=== PATIENT | female | born 1985 | race Caucasian/White ===

== ENCOUNTER 2019-07-19 10:40 | Emergency (ER) | payer OTHER ==
--- NOTE | 2019-07-19 11:36 | EDM.PDOC ---
ED HPI GENERAL MEDICAL PROBLEM - General Chief Complaint: Respiratory Problem Stated Complaint: SOB Time Seen by Provider: 07/19/19 11:08 Source of Information: Reports: Patient History Limitations: Reports: No Limitations - History of Present Illness INITIAL COMMENTS - FREE TEXT/NARRATIVE: The patient presents because of COVID 19 exposure. She was visiting her mother in [place] and returned home on 07/10/19. Her mom was visiting family in [place] a couple weeks ago. She went in on Thursday because she is having a cough and she found out this morning she was positive for COVID 19. The patient presents with some shortness of breath, cough, stiff neck and diarrhea. She does not have a fever here or at home. She has a history of asthma as a child. Onset: Gradual Duration: Day(s): Severity: Mild Improves with: Reports: None Worsens with: Reports: None Associated Symptoms: Reports: Cough, Shortness of Breath. Denies: Chest Pain, Fever/Chills, Headaches, Nausea/Vomiting Neck Pain Score (Numeric/FACES): 5 - Related Data Allergies Allergy/AdvReac Type Severity Reaction Status Date / Time clindamycin Allergy Rash Verified 07/19/19 11:02 Home Meds: Home Meds Norethindrone AC-Eth Estradiol [Microgestin 21 1-20 Tablet] 1 tab PO DAILY 07/18 [History] ED ROS GENERAL - Review of Systems Review Of Systems: See Below Constitutional: Reports: No Symptoms HEENT: Reports: No Symptoms Respiratory: Reports: Shortness of Breath, Cough Cardiovascular: Reports: No Symptoms Endocrine: Reports: No Symptoms GI/Abdominal: Reports: No Symptoms : Reports: No Symptoms Musculoskeletal: Reports: No Symptoms ED EXAM, GENERAL - Physical Exam Exam: See Below Exam Limited By: No Limitations General Appearance: Alert, No Apparent Distress Ears: Normal External Exam Nose: Normal Inspection Head: Atraumatic, Normocephalic Neck: Normal Inspection Respiratory/Chest: No Respiratory Distress, Lungs Clear, Normal Breath Sounds Cardiovascular: Regular Rate, Rhythm, No Edema, No Murmur GI/Abdominal: Soft, Non-Tender, No Organomegaly, No Mass Back Exam: Normal Inspection Extremities: Normal Inspection Course - Vital Signs Last Recorded V/S: Last Vital Signs Temp 98.2 F 07/19/19 10:56 Pulse 88 07/19/19 10:56 Resp 18 07/19/19 10:56 BP 146/96 H 07/19/19 10:56 Pulse Ox 99 07/19/19 10:56 - Re-Assessments/Exams Free Text/Narrative Re-Assessment/Exam: 07/19/19 11:44 I have ordered the COVID 19 test. I will call her with results. Departure - Departure Time of Disposition: 11:45 Disposition: Home, Self-Care 01 Condition: Good Clinical Impression: Viral URI - Discharge Information *PRESCRIPTION DRUG MONITORING PROGRAM REVIEWED*: Not Applicable *COPY OF PRESCRIPTION DRUG MONITORING REPORT IN PATIENT LISETH: Not Applicable Forms: ED Department Discharge Additional Instructions: We will call you with the results as soon as we have them. Please return if you are worse. Call the COVID 19 hotline for the state at . Sepsis Event Note - Evaluation Sepsis Screening Result: No Definite Risk - Focused Exam Vital Signs: Vital Signs Temp Pulse Resp BP Pulse Ox 07/19/19 10:56 98.2 F 88 18 146/96 H 99 Date Exam was Performed: 07/19/19 Time Exam was Performed: 11:37
== END 2019-07-19 12:35 | disposition home or self-care (01) ==
LOC: JD.ED 10:40
DX: J06.9 Acute upper respiratory infection, unspecified (principal); Z88.1 Allergy status to other antibiotic agents; Z20.828 Contact with and (suspected) exposure to other viral communicable diseases
CPT/HCPCS: 99282; 99284; U0001; U0002

== ENCOUNTER 2019-10-07 18:24 | Emergency (ER) | payer OTHER ==
--- NOTE | 2019-10-07 19:35 | EDM.PDOC ---
<Kevyn Martinez Niurka - Last Filed: 10/07/19 22:19> ED HPI GENERAL MEDICAL PROBLEM - General Chief Complaint: Respiratory Problem Stated Complaint: SOB COUGH PHLEGM Time Seen by Provider: 10/07/19 19:02 Source of Information: Reports: Patient History Limitations: Reports: No Limitations - Related Data Allergies Allergy/AdvReac Type Severity Reaction Status Date / Time clindamycin Allergy Rash Verified 07/19/19 11:02 Home Meds: Home Meds norethindrone ac-eth estradioL [Microgestin 21 1-20 Tablet] 1 tab PO DAILY 07/18 [History] Past Medical History Cardiovascular History: Reports: Heart Murmur Other Cardiovascular History: undetectable now Respiratory History: Reports: Other (See Below) Other Respiratory History: 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, 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 inhaler for 10-15years 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: 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: - Past Surgical History HEENT Surgical History: Reports: Tonsillectomy Social & Family History - Tobacco Use Smoking Status *Q: Never Smoker - Caffeine Use Caffeine Use: Reports: Coffee, Soda ED EXAM, GENERAL - Physical Exam Exam: See Below Exam Limited By: No Limitations General Appearance: Alert, WD/WN, No Apparent Distress Eye Exam: Bilateral Eye: EOMI, Normal Inspection Ears: Normal External Exam, Normal Canal, Hearing Grossly Normal, Normal TMs Nose: Normal Inspection, Normal Mucosa, No Blood Throat/Mouth: Normal Inspection, Normal Lips, Normal Teeth, Normal Gums, Normal Oropharynx, Normal Voice, No Airway Compromise Head: Atraumatic, Normocephalic Neck: Normal Inspection, Supple, Non-Tender, Full Range of Motion. No: Lymphadenopathy (L), Lymphadenopathy (R) Respiratory/Chest: No Respiratory Distress, Lungs Clear, Normal Breath Sounds, No Accessory Muscle Use. No: Decreased Breath Sounds, Crackles, Rhonchi, Wheezing, Stridor, Prolonged Expiration Cardiovascular: Normal Peripheral Pulses, Regular Rate, Rhythm, No Edema, No Gallop, No JVD, No Murmur, No Rub Peripheral Pulses: 3+: Radial (L), Radial (R) GI/Abdominal: Normal Bowel Sounds, Soft, Non-Tender, No Organomegaly, No Distention, No Abnormal Bruit, No Mass (Female) Exam: Deferred Rectal (Female) Exam: Deferred Back Exam: Normal Inspection, Full Range of Motion, NT Extremities: Normal Inspection, Normal Range of Motion, No Pedal Edema, Normal Capillary Refill Neurological: Alert, Oriented, Normal Cognition, No Motor/Sensory Deficits Psychiatric: Normal Affect Skin Exam: Warm, Dry, Intact, Normal Color, No Rash EKG INTERPRETATION EKG Date: 10/07/19 Time: 20:01 Rhythm: NSR Rate (Beats/Min): 81 [place]: Normal P-Wave: Present QRS: Other (Late transition) ST-T: Normal QT: Normal Comparison: NA - No Prior EKG Course - Vital Signs Last Recorded V/S: Last Vital Signs Temp 97.7 F 10/07/19 18:32 Pulse 92 10/07/19 18:32 Resp 20 10/07/19 18:32 BP 153/106 H 10/07/19 18:32 Pulse Ox 100 10/07/19 18:32 - Orders/Labs/Meds Orders: Active Orders 24 hr Category Date Time Status EKG Documentation Completion [RC] STAT Care 10/07/19 19:22 Active Chest 2V [CR] Stat Exams 10/07/19 19:22 Taken Labs: Laboratory Tests 10/07/19 10/07/19 10/07/19 Range/Units 19:54 19:54 19:54 WBC 7.11 (3.98-10.04) K/mm3 RBC 4.54 (3.98-5.22) M/mm3 Hgb 13.3 (11.2-15.7) gm/dl Hct 39.4 (34.1-44.9) % MCV 86.8 (79.4-94.8) fl MCH 29.3 (25.6-32.2) pg MCHC 33.8 (32.2-35.5) g/dl RDW Std Deviation 38.3 (36.4-46.3) fL Plt Count 260 (182-369) K/mm3 MPV 11.5 (9.4-12.3) fl Neutrophils % (Manual) 47 (40-60) % Band Neutrophils % 2 (0-10) % Lymphocytes % (Manual) 48 H (20-40) % Atypical Lymphs % 0 % Monocytes % (Manual) 2 (2-10) % Eosinophils % (Manual) 0 L (0.7-5.8) % Basophils % (Manual) 1 (0.1-1.2) Platelet Estimate Adequate RBC Morph Comment Normal D-Dimer, Quantitative 0.30 (0.19-0.50) mg/L Sodium 140 (136-145) mEq/L Potassium 3.8 (3.5-5.1) mEq/L Chloride 105 (98-107) mEq/L Carbon Dioxide 23 (21-32) mEq/L Anion Gap 15.8 H (5-15) BUN 14 (7-18) mg/dL Creatinine 0.7 (0.55-1.02) mg/dL Est Cr Clr Drug Dosing 108.01 mL/min Estimated GFR (MDRD) > 60 (>60) mL/min BUN/Creatinine Ratio 20.0 H (14-18) Glucose 91 (74-106) mg/dL Calcium 9.5 (8.5-10.1) mg/dL Total Bilirubin 0.4 (0.2-1.0) mg/dL AST 13 L (15-37) U/L ALT 18 (14-59) U/L Alkaline Phosphatase 51 (46-116) U/L Total Protein 7.8 (6.4-8.2) g/dl Albumin 3.8 (3.4-5.0) g/dl Globulin 4.0 gm/dL Albumin/Globulin Ratio 1.0 (1-2) - Re-Assessments/Exams Free Text/Narrative Re-Assessment/Exam: 10/07/19 19:31 I evaluated the patient along with Lori, and I have reviewed her documentation. I agree with her documentation. As above, the patient has been experiencing about 4 months of periodic dyspnea associated with a sensation of a phlegmy nasopharyngeal drainage, along with perioral tingling, throat tightness and difficulty swallowing, palpitations, and the sensation of walking on rubber legs. She acknowledges that when these events occur, she feels anxious. Her physical exam today is completely benign. Her oxygen saturation is 100% on room air, suggesting that her symptoms may be related to hyperventilation syndrome. For today's purposes, I have ordered a work-up that includes blood work, including a D-dimer, a chest x-ray, and an ECG. 10/07/19 20:12 Two-view chest radiograph appears to be grossly normal. The cardiac silhouette is within normal limits. No pulmonary vascular congestion. No pleural effusions. No focal infiltrate. No pneumothorax. Formal read per the Radiologist pending. 10/07/19 21:02 The patient's CBC is unremarkable. Her CMP is remarkable for a anion gap slightly elevated at 15.8, but with a bicarbonate normal at 23. The remainder of her CMP is unremarkable. Her D-dimer is within normal limits at 0.30. 10/07/19 21:15 Test results discussed with the patient and her boyfriend (now present). The patient's oxygen saturation was 100% on room air, suggesting hyperventilation, and her symptoms of perioral tingling, throat tightness, palpitations, and the sensation of walking on rubber legs are all consistent with hyperventilation syndrome. I explained that we ordered a work-up to rule out known medical causes of hyperventilation, including a PE, dysrhythmias, severe anemia, etc., and that all of those were negative. Her symptoms, therefore, are most likely due to anxiety, however, we recommended that she undergo an EGD to make sure that she does not have an upper airway abnormality, such as a Zenker's diverticulum. If that is negative, then we are advising that she seek treatment for anxiety. Her blood pressure has been elevated, however, we are recommending that she receive treatment for anxiety before she is started on an antihypertensive. Lastly, we find no evidence of an infection, and are therefore recommending that she discontinue the amoxicillin. Departure - Departure Time of Disposition: 21:17 Disposition: Home, Self-Care 01 Condition: Good Clinical Impression: Hyperventilation - Discharge Information *PRESCRIPTION DRUG MONITORING PROGRAM REVIEWED*: Not Applicable *COPY OF PRESCRIPTION DRUG MONITORING REPORT IN PATIENT LISETH: Not Applicable Instructions: Hyperventilation, Pursed Lip Breathing Referrals: Cecy Domínguez NP [Nurse Practitioner] - Forms: ED Department Discharge Additional Instructions: You were seen in the emergency room for 3 to 4 months of intermittent shortness of breath, along with the intermittent sensation of a dry mouth and a phlegmy drainage in the back of your throat, causing a choking sensation. Work-up in the ER included blood work, a chest x-ray, and an ECG. Your entire work-up was unremarkable. You are not anemic. There is no suggestion of an infection. You do not have pneumonia or collapsed lung. You do not have a blood clot in your lungs. No electrolyte abnormalities were found. Based on your history, physical exam, and ER tests, the cause of your symptoms is most likely due to anxiety, however, we are recommending that you undergo an EGD (scope of your upper gastrointestinal tract and stomach). We recommend that you STOP the amoxicillin. Please throw the remaining tablets into the trash - do not to flush them down the toilet. Please follow-up with Cecy Domínguez NP, or one of the other providers in the clinic, at the next available appointment. You can establish that provider as a PCP, and they can make arrangements for you to undergo an EGD. If your EGD is unremarkable, we recommend that you discuss with your PCP treatment options for anxiety. As discussed, you can monitor your blood pressure, but we are recommending that you not be started on an antihypertensive medicine until/unless you are treated for anxiety. If any other problems, please do not hesitate to return to the ER. Sepsis Event Note - Evaluation Sepsis Screening Result: No Definite Risk - Focused Exam Vital Signs: Vital Signs Temp Pulse Resp BP Pulse Ox 10/07/19 18:32 97.7 F 92 20 153/106 H 100 Date Exam was Performed: 10/07/19 Time Exam was Performed: 22:19 <Lori Martinez - Last Filed: 10/07/19 22:25> ED HPI GENERAL MEDICAL PROBLEM - History of Present Illness INITIAL COMMENTS - FREE TEXT/NARRATIVE: Ms. Roger is a 34 year-old woman with no significant medical history, who presents with complaints of post-nasal drainage which causes choking, and shortness of breath. She first notice the symptoms in June, when she was seen in a [place], [place] ED. She was given steroids IV and sent home with a 2 day course. She felt as the steroids really helped. She returned to her PCP 1 week later for the same symptoms. She was diagnosed with seasonal allergies. She took Benadryl and Zyrtec without relief. After 3 weeks she returned a third time and had a thyroid workup which was normal. She then was given a 14 day course of Amoxicillin. She is on day 12. She reports that she will get a post- nasal drip, she will have a feeling of phlegm, which she is unable to clear. At times she will choke and have difficulty breathing. Then her mouth will become dry and her throat feels tight and at times she has mild chest palpitations. At times she notices some perioral tingling which is accompanied by the sensation of walking on rubbery legs. The episodes last about one hour and then resolve spontaneously. The cycle will repeat several times per day. She reports that she has had trouble with anxiety in the past and feels as if she might be having anxiety during her symptoms. She denies, nausea, vomiting, chest pain, diarrhea, constipation, cough, sore throat, WONG, abdominal pain and no urinary symptoms. Today in the ED the patient is hemodynamically stable and afebrile. She has recently moved to this area and has not established a PCP. 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 Course - Orders/Labs/Meds Labs: Laboratory Tests 10/07/19 10/07/19 10/07/19 Range/Units 19:54 19:54 19:54 WBC 7.11 (3.98-10.04) K/mm3 RBC 4.54 (3.98-5.22) M/mm3 Hgb 13.3 (11.2-15.7) gm/dl Hct 39.4 (34.1-44.9) % MCV 86.8 (79.4-94.8) fl MCH 29.3 (25.6-32.2) pg MCHC 33.8 (32.2-35.5) g/dl RDW Std Deviation 38.3 (36.4-46.3) fL Plt Count 260 (182-369) K/mm3 MPV 11.5 (9.4-12.3) fl Neutrophils % (Manual) 47 (40-60) % Band Neutrophils % 2 (0-10) % Lymphocytes % (Manual) 48 H (20-40) % Atypical Lymphs % 0 % Monocytes % (Manual) 2 (2-10) % Eosinophils % (Manual) 0 L (0.7-5.8) % Basophils % (Manual) 1 (0.1-1.2) Platelet Estimate Adequate RBC Morph Comment Normal D-Dimer, Quantitative 0.30 (0.19-0.50) mg/L Sodium 140 (136-145) mEq/L Potassium 3.8 (3.5-5.1) mEq/L Chloride 105 (98-107) mEq/L Carbon Dioxide 23 (21-32) mEq/L Anion Gap 15.8 H (5-15) BUN 14 (7-18) mg/dL Creatinine 0.7 (0.55-1.02) mg/dL Est Cr Clr Drug Dosing 108.01 mL/min Estimated GFR (MDRD) > 60 (>60) mL/min BUN/Creatinine Ratio 20.0 H (14-18) Glucose 91 (74-106) mg/dL Calcium 9.5 (8.5-10.1) mg/dL Total Bilirubin 0.4 (0.2-1.0) mg/dL AST 13 L (15-37) U/L ALT 18 (14-59) U/L Alkaline Phosphatase 51 (46-116) U/L Total Protein 7.8 (6.4-8.2) g/dl Albumin 3.8 (3.4-5.0) g/dl Globulin 4.0 gm/dL Albumin/Globulin Ratio 1.0 (1-2) Sepsis Event Note - Focused Exam Date Exam was Performed: 10/07/19 Time Exam was Performed: 22:21
--- NOTE | 2019-10-08 10:19 | CR ---
Chest: 2 views of the chest were obtained. Comparison: No prior chest imaging is available. Cardiac silhouette and mediastinum are normal. Lungs are clear. Bony structures are unremarkable. Impression: 1. Nothing acute is seen on 2 view chest x-ray. Diagnostic code #1 This report was dictated in MDT
== END 2019-10-07 21:42 | disposition home or self-care (01) ==
LOC: JD.ED 18:24
DX: R06.4 Hyperventilation (principal); Z88.1 Allergy status to other antibiotic agents
CPT/HCPCS: 36415; 71046; 71046-26; 80053; 85007; 85027; 85379; 93005; 93010; 99282; 99285-25

== ENCOUNTER 2023-05-19 17:15 | Inpatient (IN) | payer MEDICAID ==
[~2023-05-19 17:15] MED LIST: Bupivacaine 0.25% 10 ML SDV ONE; Lidocaine 1% 10 ML MDV ONE; Sodium Bicarbonate 8.4% 50 MEQ/50 ML SDV ONE
[2023-05-19 18:32] LABS: BASOPHILS PERCENT AUTO 0.3 % (0.0-1.0); EOSINOPHILS ABSOLUTE AUTO 0.1 K/mm3 (0.0-0.4); HEMATOCRIT 35.5 % (37.0-47.0); HEMOGLOBIN 12.3 gm/dl (12.0-16.0); IMMATURE GRAN ABSOLUTE AUTO 0.05 K/mm3 (0.00-0.05); IMMATURE GRAN PERCENT AUTO 0.6 % (0.0-0.4); LYMPHOCYTES ABSOLUTE AUTO 2.8 K/mm3 (1.0-4.8); LYMPHOCYTES PERCENT AUTO 31.8 % (24.0-44.0); MEAN CORPUSCULAR HGB CONC 34.6 g/dl (32.0-36.0); MEAN CORPUSCULAR VOLUME 86.6 fl (83.0-99.0); MEAN PLATELET VOLUME 11.2 fl (9.4-12.3); MONOCYTES ABSOLUTE AUTO 0.6 K/mm3 (0.0-0.8); MONOCYTES PERCENT AUTO 6.5 % (0.0-8.0); NEUTROPHILS ABSOLUTE AUTO 5.2 K/mm3 (1.8-7.7); NEUTROPHILS PERCENT AUTO 59.8 % (41.0-71.0); PLATELET COUNT,PLT 175 K/mm3 (150-400); WHITE BLOOD CELL COUNT,WBC 8.67 K/mm3 (3.9-11.3)
[2023-05-19] MEDS ORDERED: Ondansetron 4 MG/2 ML SDV IVPUSH PRN (18:43)
[2023-05-19] MEDS ORDERED: Acetaminophen 325 MG Tab PO PRN (18:43)
[2023-05-19] MEDS ORDERED: Nalbuphine HCl 10 MG/ 1ML Amp IVPUSH PRN (18:43)
[2023-05-19] MEDS ORDERED: Lidocaine 1% 50 ML MDV INJECT PRN (18:43)
[2023-05-19] MEDS ORDERED: Sodium Chloride 0.9% 10 ML Syringe FLUSH PRN (18:43)
[2023-05-19] MEDS ORDERED: Oxytocin/Lactated Ringers 30 UNIT/500 ML BAG IV SCH ×2 (18:45)
[2023-05-19 18:47] LABS: CREATININE,URINE RAND 49.6 mg/dL (30.0-125.0); PROTEIN CREATININE RATIO,URINE 137.1 mg/g (0-149); PROTEIN,URINE RANDOM 6.8 mg/dL (0.0-11.8)
[2023-05-19 18:54] LABS: CREATININE 0.5 mg/dL (0.55-1.02); EST CRCL DRUG DOSING (CG) 145.61 mL/min
[2023-05-19] MEDS: Lactated Ringers 1,000 ML IV SCH (19:01)
[2023-05-19] MEDS ORDERED: diphenhydrAMINE 50 MG/ML SDV IVPUSH PRN (20:34)
[2023-05-19] MEDS ORDERED: fentaNYL 100 MCG/2 ML SDV EPIDUR PRN (20:34)
[2023-05-19] MEDS ORDERED: Sodium Chloride 0.9% 10 ML Syringe FLUSH SCH (21:00)
[2023-05-19] MEDS: Bupivacaine/fentaNYL/NS 100 ML Bag EPIDUR PRN (23:55)
[2023-05-20] MEDS: ePHEDrine 50 MG/ML SDV IVPUSH PRN ×4 (01:33→02:07)
[2023-05-20] MEDS: Lactated Ringers 1,000 ML IV SCH ×3 (02:35→09:49)
[2023-05-20] MEDS: Bupivacaine/fentaNYL/NS 100 ML Bag EPIDUR PRN ×2 (08:30→15:13)
[2023-05-20] MEDS ORDERED: Tranexamic Acid 1,000 MG/10 ML Vial ONE (17:09)
[2023-05-20] MEDS ORDERED: dexmedeTOMIDine HCl 200 MCG/2 ML SDV ONE (18:20)
[2023-05-20] MEDS ORDERED: Lidocaine 2% 5 ML SDV ONE (18:20)
[2023-05-20] MEDS ORDERED: fentaNYL 100 MCG/2 ML SDV ONE ×2 (18:20→21:16)
[2023-05-20] MEDS ORDERED: Metoclopramide 10 MG/2 ML SDV IVPUSH ONE (18:36)
[2023-05-20] MEDS ORDERED: Citric Acid/Sodium Citrate Solution 30 ML Cup PO ONE (18:36)
[2023-05-20] MEDS ORDERED: ceFAZolin 2 GM in Sodium Chloride 0.9% 50 ML IV ONE (18:36)
[2023-05-20] MEDS ORDERED: Azithromycin 500 MG in Sodium Chloride 0.9% 250 ML IV ONE (18:36)
[2023-05-20] MEDS ORDERED: GENTAMICIN IV ONE (19:08)
[2023-05-20] MEDS ORDERED: SODIUM CHLORIDE 0.9% IV ONE (19:08)
[2023-05-20] MEDS ORDERED: Ampicillin 2 GM in Sodium Chloride 0.9% 100 ML IV SCH (19:15)
[2023-05-20] MEDS: metroNIDAZOLE/Normal Saline 500 MG in Premix Bag 1 BAG IV SCH (19:21)
[2023-05-20] MEDS ORDERED: Morphine PF 10 MG/10 ML SDV ONE (19:26)
[2023-05-20] MEDS ORDERED: ceFAZolin 2 GM Vial ONE ×3 (19:54→20:57)
[2023-05-20] MEDS ORDERED: Phenylephrine 1% 10 MG/ML SDV ONE ×2 (20:22→23:01)
[2023-05-20] MEDS ORDERED: Lactated Ringers 1,000 ML ONE ×2 (21:03→22:01)
[2023-05-20] MEDS ORDERED: Sodium Chloride 0.9% 1,000 ML ONE (21:03)
[2023-05-20] MEDS ORDERED: Etomidate 2 MG/ML 20 ML SDV IVPUSH ONE (21:12)
[2023-05-20] MEDS ORDERED: Lactated Ringers 1,000 ML IV ONE ×2 (21:15→21:45)
[2023-05-20 21:17] LABS: BASOPHILS PERCENT AUTO 0.2 % (0.0-1.0); EOSINOPHILS PERCENT AUTO 0.2 % (0.0-6.0); HEMATOCRIT 29.2 % (37.0-47.0); HEMOGLOBIN 9.9 gm/dl (12.0-16.0); IMMATURE GRAN ABSOLUTE AUTO 0.08 K/mm3 (0.00-0.05); IMMATURE GRAN PERCENT AUTO 0.5 % (0.0-0.4); LYMPHOCYTES ABSOLUTE AUTO 3.1 K/mm3 (1.0-4.8); LYMPHOCYTES PERCENT AUTO 18.2 % (24.0-44.0); MEAN CORPUSCULAR HGB CONC 33.9 g/dl (32.0-36.0); MEAN CORPUSCULAR VOLUME 88.5 fl (83.0-99.0); MEAN PLATELET VOLUME 11.6 fl (9.4-12.3); MONOCYTES ABSOLUTE AUTO 0.7 K/mm3 (0.0-0.8); MONOCYTES PERCENT AUTO 4.3 % (0.0-8.0); NEUTROPHILS ABSOLUTE AUTO 12.9 K/mm3 (1.8-7.7); NEUTROPHILS PERCENT AUTO 76.6 % (41.0-71.0); PLATELET COUNT,PLT 162 K/mm3 (150-400); WHITE BLOOD CELL COUNT,WBC 16.89 K/mm3 (3.9-11.3)
[2023-05-20] MEDS ORDERED: Midazolam 1 MG/ML 2 ML SDV ONE ×2 (21:17→21:34)
[2023-05-20] MEDS ORDERED: Rocuronium 50 MG/5 ML Vial ONE (21:19)
[2023-05-20 21:26] LABS: INR 0.96; PROTHROMBIN TIME 10.3 SECONDS (9.7-12.0)
[2023-05-20 21:27] LABS: PTT,PARTIAL THROMBOPLSTIN TIME 26.3 SECONDS (21.7-31.4)
[2023-05-20 21:30] LABS: A/G RATIO 0.6 (1-2); ALBUMIN 1.9 g/dl (3.4-5.0); ANION GAP 14.8 (5-15); BILIRUBIN TOTAL 0.5 mg/dL (0.2-1.0); BUN/CREATININE RATIO 11.4 (14-18); CREATININE 0.7 mg/dL (0.55-1.02); EST CRCL DRUG DOSING (CG) 104.01 mL/min; POTASSIUM,K 3.8 mEq/L (3.5-5.1); PROTEIN TOTAL,TP 5.2 g/dl (6.4-8.2)
[2023-05-20] MEDS ORDERED: Bupivacaine 0.5% 10 ML SDV ONE ×2 (21:30→22:17)
[2023-05-20] MEDS ORDERED: Ketamine 200 MG/20 ML MDV ONE (21:35)
[2023-05-20] MEDS ORDERED: Ondansetron 4 MG/2 ML SDV ONE (21:43)
[2023-05-20] MEDS ORDERED: Succinylcholine 200 MG/10 ML MDV ONE (21:45)
[2023-05-20] MEDS ORDERED: Metoclopramide 10 MG/2 ML SDV ONE (22:06)
[2023-05-20] MEDS ORDERED: HYDROmorphone 0.5 MG/0.5 ML Syringe ONE (22:20)
[2023-05-20] MEDS ORDERED: Dextrose 5%-Lactated Ringers 1,000 ML IV SCH (22:48)
[2023-05-20] MEDS ORDERED: Morphine 2 MG/ML SYRINGE IVPUSH PRN (22:48)
[2023-05-20] MEDS ORDERED: Ondansetron 4 MG/2 ML SDV IV PRN (22:48)
[2023-05-20] MEDS ORDERED: diphenhydrAMINE 50 MG/ML SDV IVPUSH PRN (22:48)
[2023-05-20] MEDS ORDERED: Phenylephrine 10 MG in Sodium Chloride 0.9% 99 ML IV SCH (23:00)
[2023-05-20] MEDS ORDERED: Methylergonovine 0.2 MG/1 ML Amp ONE (23:00)
[2023-05-20] MEDS ORDERED: Carboprost Tromethamine 250 MCG/1 mL Vial ONE (23:00)
[2023-05-20] MEDS ORDERED: Misoprostol 200 MCG Tab ONE (23:00)
[2023-05-20] MEDS ORDERED: Sodium Chloride 0.9% 250 ML ONE (23:19)
[2023-05-21] MEDS: Acetaminophen/oxyCODONE 325-5 MG Tab PO PRN ×2 (01:03→20:55)
[2023-05-21] MEDS: Ampicillin 2 GM in Sodium Chloride 0.9% 100 ML IV SCH ×4 (01:58→20:10)
[2023-05-21] MEDS: metroNIDAZOLE/Normal Saline 500 MG in Premix Bag 1 BAG IV SCH ×2 (03:59→14:34)
[2023-05-21] MEDS: Ketorolac 30 MG/ML SDV IVPUSH SCH ×3 (04:00→15:54)
[2023-05-21 05:00] LABS: A/G RATIO 0.6 (1-2); ALBUMIN 1.7 g/dl (3.4-5.0); ANION GAP 14.8 (5-15); BILIRUBIN TOTAL 0.9 mg/dL (0.2-1.0); BUN/CREATININE RATIO 16.7 (14-18); CALCIUM 7.4 mg/dL (8.5-10.1); CREATININE 0.6 mg/dL (0.55-1.02); EST CRCL DRUG DOSING (CG) 121.35 mL/min; POTASSIUM,K 3.8 mEq/L (3.5-5.1); PROTEIN TOTAL,TP 4.6 g/dl (6.4-8.2)
[2023-05-21 05:23] LABS: HEMATOCRIT 32.2 % (37.0-47.0); HEMOGLOBIN 11.1 gm/dl (12.0-16.0); MEAN CORPUSCULAR HEMOGLOBIN 29.4 pg (28.0-32.0); MEAN CORPUSCULAR HGB CONC 34.5 g/dl (32.0-36.0); MEAN CORPUSCULAR VOLUME 85.2 fl (83.0-99.0); MEAN PLATELET VOLUME 11.6 fl (9.4-12.3); PLATELET COUNT,PLT 150 K/mm3 (150-400); RED BLOOD CELL COUNT 3.78 M/mm3 (4.10-5.30); WHITE BLOOD CELL COUNT,WBC 25.97 K/mm3 (3.9-11.3)
[2023-05-21 05:59] LABS: BAND PERCENT MAN 0 % (0-10); BASOPHILS PERCENT MAN 0 (0.1-1.2); EOSINOPHILS PERCENT MAN 0 % (0.7-5.8); LYMPHOCYTES % ATYPICAL MANUAL 0 %; LYMPHOCYTES PERCENT MAN 10 % (20-40); MONOCYTES PERCENT MAN 6 % (2-10)
[2023-05-21 06:01] LABS: PLATELET COUNT ESTIMATE ADEQUATE
[2023-05-21] MEDS ORDERED: Magnesium Sulfate/Water 2 GM in Premix Bag 1 BAG IV ONE (06:07)
[2023-05-21] MEDS ORDERED: Sertraline 50 MG Tab PO SCH (09:00)
[2023-05-21] MEDS ORDERED: Sodium Chloride 0.9% 250 ML ONE (20:07)
[2023-05-22] MEDS ORDERED: Simethicone 80 MG Tab.Chew PO PRN ×2 (00:37→06:21)
[2023-05-22] MEDS: Acetaminophen/oxyCODONE 325-5 MG Tab PO PRN ×6 (00:52→20:47)
[2023-05-22 05:30] LABS: HEMATOCRIT 24.6 % (37.0-47.0); HEMOGLOBIN 8.4 gm/dl (12.0-16.0); MEAN CORPUSCULAR HEMOGLOBIN 29.8 pg (28.0-32.0); MEAN CORPUSCULAR HGB CONC 34.1 g/dl (32.0-36.0); MEAN CORPUSCULAR VOLUME 87.2 fl (83.0-99.0); MEAN PLATELET VOLUME 11.3 fl (9.4-12.3); PLATELET COUNT,PLT 109 K/mm3 (150-400); RED BLOOD CELL COUNT 2.82 M/mm3 (4.10-5.30); WHITE BLOOD CELL COUNT,WBC 5.74 K/mm3 (3.9-11.3)
[2023-05-22 05:40] LABS: A/G RATIO 0.6 (1-2); ALBUMIN 1.8 g/dl (3.4-5.0); BILIRUBIN TOTAL 0.4 mg/dL (0.2-1.0); CALCIUM 7.8 mg/dL (8.5-10.1); CREATININE 0.5 mg/dL (0.55-1.02); EST CRCL DRUG DOSING (CG) 145.61 mL/min; MAGNESIUM 1.7 mg/dL (1.8-2.4)
[2023-05-22] MEDS: Ibuprofen 600 MG Tab PO PRN ×3 (08:02→22:28)
[2023-05-22] MEDS: Docusate Sodium 100 MG Cap PO PRN ×2 (08:02→20:48)
[2023-05-23] MEDS: Acetaminophen/oxyCODONE 325-5 MG Tab PO PRN ×4 (03:20→21:16)
[2023-05-23] MEDS: Ibuprofen 600 MG Tab PO PRN ×3 (05:36→20:25)
[2023-05-23 06:21] LABS: HEMATOCRIT 23.1 % (37.0-47.0); HEMOGLOBIN 7.6 gm/dl (12.0-16.0); MEAN CORPUSCULAR HEMOGLOBIN 29.3 pg (28.0-32.0); MEAN CORPUSCULAR HGB CONC 32.9 g/dl (32.0-36.0); MEAN CORPUSCULAR VOLUME 89.2 fl (83.0-99.0); MEAN PLATELET VOLUME 11.5 fl (9.4-12.3); PLATELET COUNT,PLT 126 K/mm3 (150-400); RED BLOOD CELL COUNT 2.59 M/mm3 (4.10-5.30); WHITE BLOOD CELL COUNT,WBC 4.69 K/mm3 (3.9-11.3)
[2023-05-23 06:43] LABS: A/G RATIO 0.6 (1-2); ALBUMIN 1.9 g/dl (3.4-5.0); ANION GAP 12.6 (5-15); BILIRUBIN TOTAL 0.3 mg/dL (0.2-1.0); CALCIUM 7.8 mg/dL (8.5-10.1); CREATININE 0.5 mg/dL (0.55-1.02); EST CRCL DRUG DOSING (CG) 145.61 mL/min; MAGNESIUM 1.8 mg/dL (1.8-2.4); POTASSIUM,K 3.6 mEq/L (3.5-5.1)
[2023-05-23] MEDS: Docusate Sodium 100 MG Cap PO PRN ×2 (08:20→20:25)
[2023-05-23] MEDS: Sertraline 50 MG Tab PO SCH (17:23)
[2023-05-24] MEDS ORDERED: NIFEdipine 10 MG Cap PO ONE (01:08)
[2023-05-24 04:00] LABS: HEMATOCRIT 29.5 % (37.0-47.0); MEAN CORPUSCULAR HEMOGLOBIN 29.5 pg (28.0-32.0); MEAN CORPUSCULAR HGB CONC 33.9 g/dl (32.0-36.0); MEAN PLATELET VOLUME 10.4 fl (9.4-12.3); PLATELET COUNT,PLT 187 K/mm3 (150-400); RED BLOOD CELL COUNT 3.39 M/mm3 (4.10-5.30); WHITE BLOOD CELL COUNT,WBC 7.26 K/mm3 (3.9-11.3)
[2023-05-24] MEDS ORDERED: Sodium Chloride 0.9% 1,000 ML IV SCH (04:00)
[2023-05-24 04:22] LABS: A/G RATIO 0.6 (1-2); ALBUMIN 2.6 g/dl (3.4-5.0); ANION GAP 16.9 (5-15); BILIRUBIN TOTAL 0.4 mg/dL (0.2-1.0); BUN/CREATININE RATIO 22.5 (14-18); CALCIUM 8.5 mg/dL (8.5-10.1); CREATININE 0.4 mg/dL (0.55-1.02); EST CRCL DRUG DOSING (CG) 182.02 mL/min; POTASSIUM,K 3.9 mEq/L (3.5-5.1); PROTEIN TOTAL,TP 6.9 g/dl (6.4-8.2)
[2023-05-24] MEDS: Acetaminophen/oxyCODONE 325-5 MG Tab PO PRN ×2 (06:21→10:28)
[2023-05-24] MEDS: Sertraline 50 MG Tab PO SCH (09:10)
[2023-05-24] MEDS ORDERED: NIFEdipine 30 MG Tab.ER PO SCH (10:15)
== END 2023-05-24 11:52 | disposition home or self-care (01) | DRG 783 ==
LOC: JD.OBCHECK 17:15 → JD.OB 17:17 → JD.OBCHECK 18:42 → JD.OB 18:43 → OBSVTOIN 20:06 → JD.OB 05-20 20:06 → JD.ICU 05-20 22:50 → JD.OB 05-21 09:00
PROVIDERS: ADMIT Obstetrics & Gynecology; ATTEND Obstetrics & Gynecology
PROC: 30233N1 Transfusion of Nonautologous Red Blood Cells into Peripheral Vein, Percutaneous Approach (ICD-10-PCS; 2023-05-20)
PROC: 10D00Z1 Extraction of Products of Conception, Low, Open Approach (ICD-10-PCS; 2023-05-20)
PROC: 0UT70ZZ Resection of Bilateral Fallopian Tubes, Open Approach (ICD-10-PCS; 2023-05-20)
PROC: 0UT90ZL Resection of Uterus, Supracervical, Open Approach (ICD-10-PCS; 2023-05-20)
PROC: 3E033XZ Introduction of Vasopressor into Peripheral Vein, Percutaneous Approach (ICD-10-PCS; 2023-05-20)
PROC: 10H07YZ Insertion of Other Device into Products of Conception, Via Natural or Artificial Opening (ICD-10-PCS; 2023-05-20)
PROC: 3E033VJ Introduction of Other Hormone into Peripheral Vein, Percutaneous Approach (ICD-10-PCS; 2023-05-20)
PROC: 10907ZC Drainage of Amniotic Fluid, Therapeutic from Products of Conception, Via Natural or Artificial Opening (ICD-10-PCS; 2023-05-20)
PROC: 30233K1 Transfusion of Nonautologous Frozen Plasma into Peripheral Vein, Percutaneous Approach (ICD-10-PCS; principal; 2023-05-21)
DX: O13.4 Gestational [pregnancy-induced] hypertension without significant proteinuria, complicating childbirth (principal); O41.1230 Chorioamnionitis, third trimester, not applicable or unspecified; D62 Acute posthemorrhagic anemia; O99.344 Other mental disorders complicating childbirth; F32.A Depression, unspecified; O26.893 Other specified pregnancy related conditions, third trimester; Z67.31 Type AB blood, Rh negative; F41.9 Anxiety disorder, unspecified; O72.1 Other immediate postpartum hemorrhage; O14.14 Severe pre-eclampsia complicating childbirth; O62.1 Secondary uterine inertia; O99.285 Endocrine, nutritional and metabolic diseases complicating the puerperium; O75.1 Shock during or following labor and delivery; O90.89 Other complications of the puerperium, not elsewhere classified; O99.03 Anemia complicating the puerperium; O76 Abnormality in fetal heart rate and rhythm complicating labor and delivery; I95.9 Hypotension, unspecified; E83.42 Hypomagnesemia; R09.02 Hypoxemia; Z37.0 Single live birth; Z3A.36 36 weeks gestation of pregnancy; Z88.1 Allergy status to other antibiotic agents
CPT/HCPCS: 36415; 36430; 51702; 59025; 80053; 82565; 82570; 83615; 83735; 84156; 84450; 84460; 84520; 84550; 85007; 85018; 85025; 85027; 85610; 85730; 86592; 86850; 86870; 86900; 86901; 86922; 87040; 93005; 94762; A9270-GY; J0290; J0330; J0665; J0690; J1170; J1580; J1836; J1885; J2210; J2250; J2270; J2274; J2371; J2405; J2765; J3010; J3475; J3490; J7030; J7050; J7120; J7999; P9016; P9017

== ENCOUNTER 2023-05-24 13:54 | Emergency (ER) | payer MEDICAID ==
[2023-05-24] MEDS ORDERED: hydrOXYzine HCl 25 MG Tab PO ONE ×2 (14:35→15:42)
== END 2023-05-24 16:09 | disposition home or self-care (01) ==
LOC: JD.ED 13:54
DX: F41.9 Anxiety disorder, unspecified (principal); I10 Essential (primary) hypertension; Z88.1 Allergy status to other antibiotic agents
CPT/HCPCS: 93005; 99284; A9270; 93010

== ENCOUNTER 2023-05-30 22:49 | Emergency (ER) | payer MEDICAID ==
[2023-05-30] MEDS ORDERED: Hydrochlorothiazide 25 MG Tab PO ONE (23:37)
[2023-05-30] MEDS ORDERED: hydrOXYzine HCl 50 MG Tab PO SCH (23:45)
== END 2023-05-31 00:05 | disposition home or self-care (01) ==
LOC: JD.ED 22:49
DX: I10 Essential (primary) hypertension (principal); F41.9 Anxiety disorder, unspecified; J45.909 Unspecified asthma, uncomplicated; Z79.899 Other long term (current) drug therapy; Z88.8 Allergy status to other drugs, medicaments and biological substances
CPT/HCPCS: 99283; A9270

== ENCOUNTER 2023-11-23 22:48 | Emergency (ER) | payer MEDICAID ==
[2023-11-23 23:29] LABS: BASOPHILS PERCENT AUTO 0.5 % (0.0-1.0); EOSINOPHILS ABSOLUTE AUTO 0.1 K/mm3 (0.0-0.4); HEMATOCRIT 40.1 % (37.0-47.0); HEMOGLOBIN 13.4 gm/dl (12.0-16.0); IMMATURE GRAN ABSOLUTE AUTO 0.02 K/mm3 (0.00-0.05); IMMATURE GRAN PERCENT AUTO 0.3 % (0.0-0.4); MEAN CORPUSCULAR HEMOGLOBIN 28.2 pg (28.0-32.0); MEAN CORPUSCULAR HGB CONC 33.4 g/dl (32.0-36.0); MEAN CORPUSCULAR VOLUME 84.2 fl (83.0-99.0); MEAN PLATELET VOLUME 11.7 fl (9.4-12.3); MONOCYTES ABSOLUTE AUTO 0.4 K/mm3 (0.0-0.8); MONOCYTES PERCENT AUTO 5.7 % (0.0-8.0); NEUTROPHILS ABSOLUTE AUTO 2.8 K/mm3 (1.8-7.7); NEUTROPHILS PERCENT AUTO 37.5 % (41.0-71.0); PLATELET COUNT,PLT 237 K/mm3 (150-400); RED BLOOD CELL COUNT 4.76 M/mm3 (4.10-5.30); WHITE BLOOD CELL COUNT,WBC 7.33 K/mm3 (3.9-11.3)
[2023-11-23 23:43] LABS: ALANINE AMINOTRANSFERASE,ALT 29 U/L (14-59); ALBUMIN 3.9 g/dl (3.4-5.0); ALKALINE PHOSPHATASE 84 U/L (46-116); ANION GAP 12.4 (5-15); ASPARTATE AMNIOTRANSFERASE,AST 15 U/L (15-37); BILIRUBIN TOTAL 0.5 mg/dL (0.2-1.0); BLOOD UREA NITROGEN,BUN 15 mg/dL (7-18); BUN/CREATININE RATIO 21.4 (14-18); CALCIUM 8.9 mg/dL (8.5-10.1); CARBON DIOXIDE,CO2 26 mEq/L (21-32); CHLORIDE,CL 105 mEq/L (98-107); CREATININE 0.7 mg/dL (0.55-1.02); EST CRCL DRUG DOSING (CG) 104.01 mL/min; ESTIMATED GFR 115 mL/min (>60); GLUCOSE RANDOM 108 mg/dL (70-99); MAGNESIUM 1.9 mg/dL (1.8-2.4); POTASSIUM,K 3.4 mEq/L (3.5-5.1); PROTEIN TOTAL,TP 7.7 g/dl (6.4-8.2); SODIUM,NA 140 mEq/L (136-145)
[2023-11-23 23:55] LABS: TROPONIN I HIGH SENSITIVITY < 4 pg/mL (<=51)
== END 2023-11-24 00:23 | disposition home or self-care (01) ==
LOC: JD.ED 22:48
DX: R07.89 Other chest pain (principal); R00.2 Palpitations; Z79.899 Other long term (current) drug therapy; Z88.1 Allergy status to other antibiotic agents
CPT/HCPCS: 36415; 71045; 71045-26; 80053; 83735; 84484; 84703; 85025; 93005; 99285